=== PATIENT | female | born 1955 | race Caucasian/White ===

== ENCOUNTER 2017-04-17 13:14 | Inpatient (IN) ==
[2017-04-17 13:45] LABS: Bilirubin,Urine Small (Negative); Blood,Urine Moderate (Negative); Clarity,Urine Clear (Clear); Color,Urine Yellow (Yellow); Glucose,Urine (UA) Normal (Normal); Ketones,Urine 15 mg/dL (Negative); Leukocyte Esterase,Urine Moderate (Negative); Nitrite,Urine Negative (Negative); Protein,Urine 30 mg/dL (Neg-Trace); Specific Gravity,Urine > 1.030 (1.010-1.025); Urobilinogen,Urine Normal (Normal)
[2017-04-17 13:47] LABS: Bacteria,Urine None Seen per hpf (None-Few); Hyaline Casts,Urine None Seen per lpf (None-Few); Squamous Epithelial Cell,Urine Many per lpf (None-Few); WBC,Urine 30-50 per hpf (0-3)
[2017-04-17 15:05] LABS: Basophils % 0.3 %; Eosinophils # 0.3 K/mcL (0.0-0.6); Eosinophils % 2.1 %; Hematocrit 41.7 % (35.3-44.9); Hemoglobin 13.1 g/dL (11.5-15.4); Immature Granulocytes % 0.4 % (0-4); Lymphocytes # 1.8 K/mcL (0.6-4.6); Lymphocytes % 14.4 %; Mean Corpuscular HGB Conc 31.4 g/dL (31.6-35.5); Mean Corpuscular Hemoglobin 27.6 pg (28.0-33.3); Mean Platelet Volume 10.8 fL (9.4-12.4); Monocytes # 0.6 K/mcL (0.0-1.3); Monocytes % 4.4 %; Neutrophils # 9.8 K/mcL (1.6-8.9); Platelet Count 251 K/mcL (140-400); Red Blood Count 4.74 M/mcL (3.82-4.97); Red Cell Distribution Width 13.1 % (11.5-14.5); Segmented Neutrophils % 78.4 %
[2017-04-17 15:16] LABS: Albumin 4.3 g/dL (3.5-5.7); Albumin/Globulin Ratio 1.3 (1.1-2.2); Bilirubin,Direct 0.1 mg/dL (0.0-0.2); Bilirubin,Indirect 0.5 mg/dL (0.0-1.2); Bilirubin,Total 0.6 mg/dL (0.3-1.0); Calcium 9.4 mg/dL (8.6-10.3); Globulin 3.2 g/dL (2.4-3.5); Potassium 3.8 mEq/L (3.5-5.1); Total Protein 7.5 g/dL (6.4-8.9)
--- NOTE | 2017-04-17 16:28 | Emergency Department Note ---
Disposition Clinical Impression: Nephrolithiasis UTI (urinary tract infection) Qualifiers: Urinary tract infection type: site unspecified Hematuria presence: with hematuria Qualified Code(s): N39.0 - Urinary tract infection, site not specified ; R31.9 - Hematuria, unspecified; R31.9 - Hematuria, unspecified Disposition: Admitted As Inpatient Condition: Good Forms: ED Satisfaction Letter, Work/School Release General Adult HPI - General Chief complaint: ED Abdominal Pain Stated complaint: Flank Pain/Vomiting/No Voiding Time Seen by Provider: 04/17/17 15:11 Source: patient Limitations: no limitations Nursing Notes Reviewed: Yes Vital Signs Reviewed: Yes - History of Present Illness HPI Narrative: Patient with a history of kidney stones presents today for evaluation of left flank pain. Patient's flank pain started yesterday. Progressive in nature. No aggravating or alleviating factors. No radiation. Patient states feels similar to his previous kidney stones. Took at home Flomax which was previously prescribed for kidney stones. Subjective fever and chills with decreased urination and decreased by mouth. Pain Scale: 9 - Related Data Home Medications Medication Instructions Recorded Confirmed Fluticasone/Salmeterol [Advair 1 each IH BID 03/27/15 03/27/15 500-50 Diskus] Ipratropium/Albuterol Neb [Duoneb] 3 ml IH Q6HR PRN 03/27/15 03/27/15 Ipratropium/Albuterol Sulfate 4 gm IH Q6H PRN 03/27/15 03/27/15 [Combivent Respimat Inhal [place]] Montelukast [Singulair] 10 mg PO DAILY 03/27/15 03/27/15 Pantoprazole Sodium [Protonix] 40 mg PO DAILY 03/27/15 03/27/15 Advair 250-50 Diskus 01/30/17 Aleve 01/30/17 Combivent Respimat Inhal [place] 01/30/17 Previous Rx's Medication Instructions Recorded Cyclobenzaprine [Flexeril] 10 mg PO TID PRN #30 tablet 01/30/17 predniSONE [PredniSONE] 40 mg PO DAILY #10 tablet 01/30/17 Promethazine/Dextromethorphan 5 ml PO HS #60 ml 03/10/17 [Promethazine-Dm Syrup] predniSONE [PredniSONE] 20 mg PO DAILY #13 tablet 03/10/17 Allergies Allergy/AdvReac Type Severity Reaction Status Date / Time levofloxacin [From Levaquin] Allergy Rash Verified 12/11/14 18:46 Hydromorphone [From Dilaudid] AdvReac Itching Verified 01/30/17 18:36 Review of Systems: CONSTITUTIONAL: Subjective fever and chills HEENT: Eyes: No visual changes. Ears, Nose, Throat: No hearing loss, difficulty talking or unable to swallow. SKIN: No rash or itching. CARDIOVASCULAR: No chest pain, chest pressure or chest discomfort. No palpitations or edema. RESPIRATORY: No shortness of breath, cough or sputum. GASTROINTESTINAL: Mild nausea but no vomiting; left-sided flank pain GENITOURINARY: No burning on urination or hematuria. NEUROLOGICAL: No headache, dizziness, syncope, paralysis, ataxia, numbness or tingling in the extremities. No change in bowel or bladder control. MUSCULOSKELETAL: No muscle pain, back pain, joint pain or stiffness. Past Medical History - Past Medical History Medical history: Reports: asthma, kidney stones Psychiatric history: Reports: no psych history - Social History Smoking Status: Never smoker Smokeless Tobacco Status: No Alcohol use: Reports: none Drug use: Reports: none Physical Exam General: Well appearing, nontoxic, no acute distress Head: Normocephalic Atraumatic Eyes: PERRL, EOMI ENT: Airway patent, no stridor Neck: supple, no meningismus Chest: Lungs clear to auscultation bilateral Cardiac: Regular rate and rhythm, no murmurs, rubs or gallops Abdomen: soft, nontender, nondistended; no guarding, rebound, or tenderness to percussion; left CVA tenderness Musculoskeletal: Calves symmetric, nontender, no palpable cord Skin: No rash, normal skin tone Neuro: Alert and Oriented to person, place, and time; No focal deficit, CN 2-12 symmetric and intact - General Limitations: no limitations General appearance: alert Course - Reevaluation(s) Reevaluation #1: Patient with 6.4 mm kidney stone 3-4 cm from the distal UVJ junction. Elevated white count. Urine with leuk esterase and WBCs. Will discuss with urology. Likely admission for infected nephrolithiasis - Consultations Consultation #1: Discussed with urology, Dr. Mendez, patient to receive antibiotics and admission for further evaluation. Will consult. Consultation #2: Discussed with hospitalist. Patient accepted for admission. Vital Signs Temperature 98.0 F 04/17/17 13:19 Pulse Rate 97 04/17/17 13:19 Respiratory Rate 18 04/17/17 13:19 Blood Pressure 128/83 04/17/17 13:19 O2 Sat by Pulse Oximetry 96 04/17/17 13:19 Temperature 98.0 F 04/17/17 13:19 Pulse Rate 97 04/17/17 13:19 Respiratory Rate 18 04/17/17 13:19 Blood Pressure 128/83 04/17/17 13:19 O2 Sat by Pulse Oximetry 96 04/17/17 13:19 Oxygen Delivery Oxygen Delivery Room Air Medical Decision Making - Lab Data Result diagrams: 04/17/17 14:15 04/17/17 14:15 Lab Results 04/17/17 04/17/17 04/17/17 Range/Units 13:29 14:15 14:15 WBC 12.5 H (4.3-11.1) K/mcL RBC 4.74 (3.82-4.97) M/mcL Hgb 13.1 (11.5-15.4) g/dL Hct 41.7 (35.3-44.9) % MCV 88.0 (83.0-100.0) fL MCH 27.6 L (28.0-33.3) pg MCHC 31.4 L (31.6-35.5) g/dL RDW 13.1 (11.5-14.5) % Plt Count 251 (140-400) K/mcL MPV 10.8 (9.4-12.4) fL Immature Gran % 0.4 (0-4) % Seg Neutrophils % 78.4 % Lymphocytes % 14.4 % Monocytes % 4.4 % Eosinophils % 2.1 % Basophils % 0.3 % Neutrophils # 9.8 H (1.6-8.9) K/mcL Lymphocytes # 1.8 (0.6-4.6) K/mcL Monocytes # 0.6 (0.0-1.3) K/mcL Eosinophils # 0.3 (0.0-0.6) K/mcL Basophils # 0.0 (0.0-0.2) K/mcL Sodium 137 (136-145) mEq/L Potassium 3.8 (3.5-5.1) mEq/L Chloride 105 (98-107) mEq/L Carbon Dioxide 25 (23-29) mEq/L BUN 18 (6-20) mg/dL Creatinine 1.39 H (0.60-1.20) mg/dL Est GFR ( Amer) 47 L (> 60) Est GFR (Non-Af Amer) 39 L (> 60) BUN/Creatinine Ratio 13 (6-26) Glucose 94 (70-105) mg/dL Calculated Osmolality 286 (280-300) Calcium 9.4 (8.6-10.3) mg/dL Total Bilirubin 0.6 (0.3-1.0) mg/dL Direct Bilirubin 0.1 (0.0-0.2) mg/dL Indirect Bilirubin 0.5 (0.0-1.2) mg/dL AST 20 (13-39) Units/L ALT 20 (7-52) Units/L Alkaline Phosphatase 125 H (34-104) Units/L Serum Total Protein 7.5 (6.4-8.9) g/dL Albumin 4.3 (3.5-5.7) g/dL Globulin 3.2 (2.4-3.5) g/dL Albumin/Globulin Ratio 1.3 (1.1-2.2) Lipase 12 (11-82) Units/L Urine Color Yellow (Yellow) Urine Clarity Clear (Clear) Urine pH 6.0 (5.0-8.0) pH Units Ur Specific [place] > 1.030 H (1.010-1.025) Urine Protein 30 H (Neg-Trace) mg/dL Urine Glucose (UA) Normal (Normal) mg/dL Urine Ketones 15 H (Negative) mg/dL Urine Blood Moderate H (Negative) Urine Nitrite Negative (Negative) Urine Bilirubin Small H (Negative) Urine Urobilinogen Normal (Normal) mg/dL Ur Leukocyte Esterase Moderate H (Negative) Urine Microscopic RBC 5-15 H (0-3) per hpf Urine Microscopic WBC 30-50 H (0-3) per hpf Ur Squamous Epith Cells Many H (None-Few) per lpf Urine Bacteria None Seen (None-Few) per hpf Hyaline Casts None Seen (None-Few) per lpf Ur Culture Indicated? NO. (NO)
[2017-04-17] MEDS ORDERED: cefTRIAXone 1,000 MG in Water for inj. (sterile) 10 ML IVP ONE (17:15)
[2017-04-17] MEDS ORDERED: 0.9 % Sodium Chloride 1,000 ML IVC ONE (17:15)
--- NOTE | 2017-04-17 17:17 | Emergency Department Note ---
START Narrative - START START: I examined this patient and my medical decision-making was reviewed with the Resident Physician. I agree with the documented findings, disposition and treatment plan as described except to the extent set forth below. 61 yo F here for left flank pain. CT reveals large stone on left 6mm with infected urine and wbc count elevation elevated creat admit and consult to urology
[2017-04-17] MEDS ORDERED: *HR* FentaNYL (PF) 100 MCG/2 ML VIAL IVP ONE (17:20)
[2017-04-17] MEDS ORDERED: *HR* OxyCODONE Immed Rel 5 MG TABLET PO ONE ×2 (17:20→18:34)
[2017-04-17] MEDS ORDERED: Ondansetron 4 MG/2 ML VIAL IVP ONE (17:43)
[2017-04-17] MEDS ORDERED: Ondansetron 4 MG/2 ML VIAL ONE (17:45)
[2017-04-17] MEDS ORDERED: *HR* Nalbuphine 20 MG/ML AMPUL IVP ONE (18:42)
[2017-04-17] MEDS ORDERED: 0.9 % Sodium Chloride 1,000 ML ONE (19:27)
[2017-04-17] MEDS: *HR* Promethazine 25 MG/ML VIAL IVP PRN (21:41)
[2017-04-17] MEDS ORDERED: Naloxone 0.4 MG/ML INJ IVP PRN (22:56)
[2017-04-17] MEDS ORDERED: *HR* HYDROcodone/Acet 5/325 mg TABLET PO PRN (22:56)
[2017-04-17] MEDS ORDERED: NON-FORMULARY MEDICATION 1 EACH EACH (Ipratropium/Albuterol Sulfate [Combivent Respimat In IH PRN (23:00)
[2017-04-17] MEDS ORDERED: Ipratropium/Albuterol Neb 3 ML IH PRN (23:00)
--- NOTE | 2017-04-17 23:06 | Internal Med History&Physical ---
Date of Encounter: 04/17/17 Time of Encounter: 22:00 Assessment and Plan (1) Asthma Current visit: Yes Status: Acute Stable, no wheezing now. Cont home medications. Qualifiers: Asthma severity: mild Asthma persistence: intermittent Asthma complication type: uncomplicated Qualified Code(s): J45.20 - Mild intermittent asthma, uncomplicated (2) DVT prophylaxis Current visit: Yes Status: Acute SCD at this point. May start AC after urology procedure. (3) Nephrolithiasis Current visit: Yes Status: Acute CT abd shows ureter stone with signs of obstruction. - NPO, IVF - Pain control - Urology consult - Abx for UTI (4) UTI (urinary tract infection) Current visit: Yes Status: Acute Will cont rocephin IV. F/U urine culture. Qualifiers: Urinary tract infection type: site unspecified Hematuria presence: without hematuria Qualified Code(s): N39.0 - Urinary tract infection, site not specified Internal Medicine - H&P: HPI Chief complaint: Left flank pain Admitted From: Home Plans for Post Hospital Care: Home History of present illness: Ms. Sih is a 61 year old female with Hx of kidney stone and asthma present to ER for left flank pain, which started from yesterday 9am. Pt has subjective fever and chills. She also has nausea and vomited 4 times today. Vomitings are clear liquids. Pt denies dysuria, burning or other urinating symptoms. In ER, CT abd shows left ureter stone 6.5mm with hydronephrosis. UA shows UTI. Pt was admitted for further management. Urology consult was informed by ER. Past Med Surg Social Fam HX - Past Medical History Medical history: asthma, kidney stones Psychiatric history: no psych history - Social History Smoking Status: Never smoker Smokeless Tobacco Status: No Alcohol use: none Drug use: none - Family History Mother History Unknown: Yes Internal Medicine - H&P: Meds Fluticasone/Salmeterol [Advair 500-50 Diskus] 1 each IH BID 03/27/15 [History] Ipratropium/Albuterol Neb [Duoneb] 3 ml IH Q6HR PRN 03/27/15 [History] Ipratropium/Albuterol Sulfate [Combivent Respimat Inhal [place]] 2 puff IH Q6H PRN 03/27/15 [History] Montelukast [Singulair] 10 mg PO DAILY 03/27/15 [History] Pantoprazole Sodium [Protonix] 40 mg PO DAILY 03/27/15 [History] 3 Allergy/AdvReac Type Severity Reaction Status Date / Time levofloxacin [From Levaquin] Allergy Rash Verified 12/11/14 18:46 Hydromorphone [From Dilaudid] AdvReac Itching Verified 01/30/17 18:36 All Systems PM: A 10-system review of systems was performed and is negative for pertinent findings except as documented above in the HPI. - Constitutional Vitals: Temp Pulse Resp BP Pulse Ox 98.7 F 80 15 126/83 96 04/17/17 19:29 04/17/17 19:29 04/17/17 19:29 04/17/17 19:29 04/17/17 19:29 General appearance: Present: mild distress, A&O X 3, answers questions appropriately - Head Head exam: Present: atraumatic, normocephalic - Eye Eye exam: Present: PERRL, conjuntiva pink, sclera anicteric Pupils: Present: PERRL - Neck Neck exam general surgery: Present: supple, trachea midline. Absent: lymphadenopathy - Respiratory Respiratory exam: Present: CTAB. Absent: accessory muscle use, rales, rhonchi, wheezes - Cardiovascular Cardiovascular exam: Present: RRR, +S1, +S2. Absent: diastolic murmur, gallop, rubs, systolic murmur - GI/Abdominal GI/Abdominal exam: Present: normal bowel sounds, soft, no peritoneal signs. Absent: distended, tenderness Additional comments: CVAT positive on left side - Extremities Exam Extremities exam: Present: warm, radial pulses palpable and symmetrical. Absent : calf tenderness, cyanotic, pedal edema - Neurological Exam Neurological exam: Present: CN II-XII intact, oriented X3, no focal deficits. Absent: pronater drift, facial droop, speech deficit - Skin Skin exam: Present: dry, intact Internal Med - H&P Results - Labs CBC & Chem 7: 04/17/17 14:15 04/17/17 14:15
[2017-04-18] MEDS: 0.9 % Sodium Chloride 1,000 ML IVC SCH ×2 (00:30→13:47)
[2017-04-18] MEDS ORDERED: Ondansetron 4 MG/2 ML VIAL IVP PRN (02:28)
[2017-04-18] MEDS ORDERED: *HR* HYDROcodone/Acet 5/325 mg TABLET PO PRN (04:12)
[2017-04-18] MEDS ORDERED: *HR* HYDROcodone/Acet 5/325 mg TABLET PO ONE (04:12)
[2017-04-18 05:44] LABS: Basophils % 0.2 %; Eosinophils # 0.2 K/mcL (0.0-0.6); Eosinophils % 1.7 %; Hematocrit 35.8 % (35.3-44.9); Immature Granulocytes % 0.3 % (0-4); Lymphocytes # 1.3 K/mcL (0.6-4.6); Lymphocytes % 10.1 %; Mean Corpuscular HGB Conc 31.6 g/dL (31.6-35.5); Mean Corpuscular Volume 88.6 fL (83.0-100.0); Mean Platelet Volume 10.5 fL (9.4-12.4); Monocytes # 0.6 K/mcL (0.0-1.3); Monocytes % 4.9 %; Neutrophils # 10.4 K/mcL (1.6-8.9); Platelet Count 202 K/mcL (140-400); Red Blood Count 4.04 M/mcL (3.82-4.97); Red Cell Distribution Width 13.1 % (11.5-14.5); Segmented Neutrophils % 82.8 %
[2017-04-18] MEDS ORDERED: *HR* Heparin 5,000 UNIT/ML VIAL SQ SCH (06:00)
[2017-04-18 06:03] LABS: Hemoglobin 11.3 g/dL (11.5-15.4)
[2017-04-18 06:13] LABS: Calcium 8.4 mg/dL (8.6-10.3); Potassium 3.9 mEq/L (3.5-5.1)
[2017-04-18] MEDS ORDERED: *HR* HYDROcodone/Acet 10/325 mg TABLET PO PRN ×2 (06:47→13:53)
--- NOTE | 2017-04-18 07:38 | Urology - Consult Note ---
Date of Encounter: 04/18/17 Time of Encounter: 07:36 - Assessment and Plan (1) Nephrolithiasis Current Visit: Yes Status: Acute Assessment and plan: 61 year old woman with a distal left ureteral stone. Her pain is not well controlled. She wishes to have the stone removed. She has a slight elevation in her creatinine. I recommend proceeding with a left ureteroscopy, laser lithotripsy, and stent placement. She was informed of the risks of the procedure including but not limited to bleeding, infection, injury to other structures, need for further procedures, stent irritation, incomplete fragmentation, ureteral perforation, need for nephrostomy tube, need for open repair, risks unforeseen, and the risk of anesthesia. She is willing to proceed. Urology CN:HPI Consult date: 04/18/17 Reason for consult Urology: Other (Left ureteral stone) Requesting physician: Duke Trammell History of present illness: 61-year-old woman presents with a 2 day history of left flank pain. She reports having a known history of nephrolithiasis. The pain is located in the left flank and radiates to the left groin. It is sharp. She says the pain is not well controlled currently. She has had some nausea associated with it. The pain was severe, but it is somewhat improved now. Previously she had a stone which was treated a number of years ago. Past Med Surg Social Fam HX - Past Medical History Medical history: asthma, kidney stones Psychiatric history: no psych history - Social History Smoking Status: Never smoker Smokeless Tobacco Status: No Alcohol use: none Drug use: none - Family History Mother History Unknown: Yes Medications and Allergies Fluticasone/Salmeterol [Advair 500-50 Diskus] 1 each IH BID 03/27/15 [History] Ipratropium/Albuterol Neb [Duoneb] 3 ml IH Q6HR PRN 03/27/15 [History] Ipratropium/Albuterol Sulfate [Combivent Respimat Inhal [place]] 2 puff IH Q6H PRN 03/27/15 [History] Montelukast [Singulair] 10 mg PO DAILY 03/27/15 [History] Pantoprazole Sodium [Protonix] 40 mg PO DAILY 03/27/15 [History] 3 Allergy/AdvReac Type Severity Reaction Status Date / Time levofloxacin [From Levaquin] Allergy Rash Verified 12/11/14 18:46 Hydromorphone [From Dilaudid] AdvReac Itching Verified 01/30/17 18:36 Review of Systems - Constitutional no chills, no fever(s) - EENT Nose, mouth and throat: no dizziness - Cardiovascular no chest pain - Respiratory no dyspnea - Gastrointestinal no nausea, no vomiting - Genitourinary Genitourinary: flank pain, no hematuria - Musculoskeletal no back pain - Integumentary no erythema, no rash - Neurological no weakness - Psychiatric no suicidal ideation - Hematologic/Lymphatic no easy bleeding - Allergic/Immunologic no wheezing Exam Initial Vital Signs Temp Pulse Resp BP Pulse Ox 98.0 F 97 18 128/83 96 04/17/17 13:19 04/17/17 13:19 04/17/17 13:19 04/17/17 13:19 04/17/17 13:19 - General physical appearance Present: well developed, well nourished, no distress - Eyes Absent: icteric - ENT Present: normal nares - Neck Present: trachea midline - Respiratory Present: normal respiratory effort - Abdomen Abdomen: Present: soft - Integumentary Present: no rash - Neurologic Present: normal coordination - Musculoskeletal Present: other (No edema) Urology Results - Labs 04/18/17 05:04 04/18/17 05:04 Abnormal lab results WBC 12.6 K/mcL (4.3-11.1) H 04/18/17 05:04 Hgb 11.3 g/dL (11.5-15.4) L D 04/18/17 05:04 Neutrophils # 10.4 K/mcL (1.6-8.9) H 04/18/17 05:04 Chloride 109 mEq/L (98-107) H 04/18/17 05:04 Creatinine 1.40 mg/dL (0.60-1.20) H 04/18/17 05:04 Est GFR ( Amer) 47 (> 60) L 04/18/17 05:04 Est GFR (Non-Af Amer) 38 (> 60) L 04/18/17 05:04 POC Glucose 91 (58-89) H 04/18/17 05:33 Calcium 8.4 mg/dL (8.6-10.3) L 04/18/17 05:04 Alkaline Phosphatase 125 Units/L (34-104) H 04/17/17 14:15 Ur Specific [place] > 1.030 (1.010-1.025) H 04/17/17 13:29 Urine Protein 30 mg/dL (Neg-Trace) H 04/17/17 13:29 Urine Ketones 15 mg/dL (Negative) H 04/17/17 13:29 Urine Blood Moderate (Negative) H 04/17/17 13:29 Urine Bilirubin Small (Negative) H 04/17/17 13:29 Ur Leukocyte Esterase Moderate (Negative) H 04/17/17 13:29 Urine Microscopic RBC 5-15 per hpf (0-3) H 04/17/17 13:29 Urine Microscopic WBC 30-50 per hpf (0-3) H 04/17/17 13:29 Ur Squamous Epith Cells Many per lpf (None-Few) H 04/17/17 13:29 Diabetes panel 04/18/17 Range/Units 05:04 Sodium 138 (136-145) mEq/L Potassium 3.9 (3.5-5.1) mEq/L Chloride 109 H (98-107) mEq/L Carbon Dioxide 24 (23-29) mEq/L BUN 14 (6-20) mg/dL Creatinine 1.40 H (0.60-1.20) mg/dL Glucose 101 (70-105) mg/dL Calcium 8.4 L (8.6-10.3) mg/dL Calcium panel 04/18/17 Range/Units 05:04 Calcium 8.4 L (8.6-10.3) mg/dL Pituitary panel 04/18/17 Range/Units 05:04 Sodium 138 (136-145) mEq/L Potassium 3.9 (3.5-5.1) mEq/L Chloride 109 H (98-107) mEq/L Carbon Dioxide 24 (23-29) mEq/L BUN 14 (6-20) mg/dL Creatinine 1.40 H (0.60-1.20) mg/dL Glucose 101 (70-105) mg/dL Calcium 8.4 L (8.6-10.3) mg/dL Adrenal panel 04/18/17 Range/Units 05:04 Sodium 138 (136-145) mEq/L Potassium 3.9 (3.5-5.1) mEq/L Chloride 109 H (98-107) mEq/L Carbon Dioxide 24 (23-29) mEq/L BUN 14 (6-20) mg/dL Creatinine 1.40 H (0.60-1.20) mg/dL Glucose 101 (70-105) mg/dL Calcium 8.4 L (8.6-10.3) mg/dL All other labs normal. - Imaging CT scan - abdomen: report reviewed, image reviewed CT scan - pelvis: report reviewed, image reviewed Consult Discharge Plan - Plan Referrals: Minh Medina Jr, MD [Primary Care Provider] -
--- NOTE | 2017-04-18 07:55 | Internal Med Progress Note ---
Date of Encounter: 04/18/17 Time of Encounter: 07:23 - Assessment and plan (1) GAUDENCIO (acute kidney injury) Current Visit: Yes Status: Acute Assessment and plan: Acute kidney injury likely due to dehydration with continued IV hydration and repeat in a.m. (2) Obesity Current Visit: Yes Status: Chronic Assessment and plan: Chronic Qualifiers: Obesity type: due to excess calories Obesity classification: adult class 2 (BMI 35 - 39.9) Serious obesity comorbidity presence: without serious comorbidity Body mass index: unspecified BMI Qualified Code(s): E66.09 - Other obesity due to excess calories (3) Leukocytosis Current Visit: Yes Status: Acute Assessment and plan: Likely reactive patient also has UTI was sent for cultures Qualifiers: Leukocytosis type: unspecified Qualified Code(s): D72.829 - Elevated white blood cell count, unspecified (4) UTI (urinary tract infection) Current Visit: Yes Status: Acute Assessment and plan: Acute cystitis without hematuria continue Rocephin and sent urine culture Qualifiers: Urinary tract infection type: acute cystitis Hematuria presence: without hematuria Qualified Code(s): N30.00 - Acute cystitis without hematuria (5) Nephrolithiasis Current Visit: Yes Status: Acute Assessment and plan: Neurologic consult test patient for surgery today (6) Asthma Current Visit: Yes Status: Acute Qualifiers: Asthma severity: mild Asthma persistence: intermittent Asthma complication type: uncomplicated Qualified Code(s): J45.20 - Mild intermittent asthma, uncomplicated - Subjective Interval history: Patient with history of obesity, asthma, admitted with kidney stone and UTI seen by urology Dr. Mendez and plan is for surgery today patient clinically is better less flank pain no nausea vomiting - Constitutional Vitals: Temp Pulse Resp BP Pulse Ox 98.9 F 88 15 119/76 92 04/18/17 03:41 04/18/17 03:41 04/18/17 03:41 04/18/17 03:41 04/18/17 03:41 General appearance: Present: mild distress, A&O X 3, answers questions appropriately - Eye Eye exam: Present: PERRL, conjuntiva pink, sclera anicteric Pupils: Present: PERRL - Neck Neck exam general surgery: Present: supple, trachea midline. Absent: lymphadenopathy - Respiratory Respiratory exam: Present: CTAB. Absent: accessory muscle use, rales, rhonchi, wheezes - Cardiovascular Cardiovascular exam: Present: RRR, +S1, +S2. Absent: diastolic murmur, gallop, rubs, systolic murmur - GI/Abdominal GI/Abdominal exam: Present: soft, tenderness Internal Medicine: Result - Labs CBC & Chem 7: 04/18/17 05:04 04/18/17 05:04 Labs: Short CBC 04/18/17 Range/Units 05:04 WBC 12.6 H (4.3-11.1) K/mcL Hgb 11.3 L D (11.5-15.4) g/dL Hct 35.8 (35.3-44.9) % Plt Count 202 (140-400) K/mcL Neutrophils # 10.4 H (1.6-8.9) K/mcL BMP 04/18/17 05:04 Sodium 138 Potassium 3.9 Chloride 109 H Carbon Dioxide 24 BUN 14 Creatinine 1.40 H Glucose 101 Calcium 8.4 L Consult Discharge Plan - Plan Referrals: Minh Medina Jr, MD [Primary Care Provider] -
[2017-04-18] MEDS: *HR* Promethazine 25 MG/ML VIAL IVP PRN (08:48)
[2017-04-18] MEDS ORDERED: cefTRIAXone 1,000 MG in Water for inj. (sterile) 20 ML 10 ML IVPB SCH (09:00)
[2017-04-18] MEDS ORDERED: Ketorolac 15 MG/ML VIAL IVP PRN ×2 (09:03→13:53)
[2017-04-18] MEDS ORDERED: Budesonide/Formoterol 160/4.5 MDI IH SCH ×2 (10:00→22:00)
--- NOTE | 2017-04-18 10:54 | Anesthesia Evaluation PreOp ---
Date of Encounter: 04/18/17 Time of Encounter: 11:00 - Past History Planned Operation: Left USE with Laser Cardiac History: Denies any Significant Hx Pulmonary History: Asthma AWARD CLERK History: Denies Any Significant HX Other Medical History: Other (Obese) Anesthesia History: No Prior Anesthetic Complications : No Alcohol Use: none Drug use: none Medications and Allergies Fluticasone/Salmeterol [Advair 500-50 Diskus] 1 each IH BID 03/27/15 [History] Ipratropium/Albuterol Neb [Duoneb] 3 ml IH Q6HR PRN 03/27/15 [History] Ipratropium/Albuterol Sulfate [Combivent Respimat Inhal [place]] 2 puff IH Q6H PRN 03/27/15 [History] Montelukast [Singulair] 10 mg PO DAILY 03/27/15 [History] Pantoprazole Sodium [Protonix] 40 mg PO DAILY 03/27/15 [History] 3 Allergy/AdvReac Type Severity Reaction Status Date / Time levofloxacin [From Levaquin] Allergy Rash Verified 12/11/14 18:46 Hydromorphone [From Dilaudid] AdvReac Itching Verified 01/30/17 18:36 - Meds/Allergy Pre-op Review Medications Reviewed: Yes Allergies Reviewed: Yes Beta Blockers on Current Med List: No Anesthesia Results - Labs 04/18/17 05:04 04/18/17 05:04 Laboratory Tests 04/18/17 04/18/17 05:04 05:04 Hgb 11.3 L D Hct 35.8 Plt Count 202 Sodium 138 Potassium 3.9 BUN 14 Creatinine 1.40 H Anesthesia Exam O2 Sat Height 1.63 m Weight 95 kg Weight 95.254 kg O2 Sat by Pulse Oximetry 93 O2 Sat by Pulse Oximetry 93 O2 Sat by Pulse Oximetry 93 O2 Sat by Pulse Oximetry 93 O2 Sat by Pulse Oximetry 92 O2 Sat by Pulse Oximetry 92 O2 Sat by Pulse Oximetry 96 O2 Sat by Pulse Oximetry 96 O2 Sat by Pulse Oximetry 96 O2 Sat by Pulse Oximetry 96 Vital Signs Temp Pulse Resp BP Pulse Ox 98.0 F 97 18 128/83 96 04/17/17 13:19 04/17/17 13:19 04/17/17 13:19 04/17/17 13:19 04/17/17 13:19 Height: 5'4 Weight: 209 lbs NPO (# of Hours): [place] Pain Scale: 0 - HEENT Pupil (Motor): Pupils equal, EOMI Mallampati: III Oral Opening: Greater than 3 - AWARD CLERK LOC: Oriented AWARD CLERK Motor: Normal RUE, Normal LUE, Normal RLE, Normal LLE, Normal Face AWARD CLERK Sensory: Normal: RUE, LUE, RLE, LLE, Face - Cardiac Rhythm: Regular Murmur: None JVD: No Carotid Bruit: No - Pulmonary Breath Sounds: bilateral Clear Respiratory Effort: Symmetrical Anesthesia Assess/Plan ASA Score: 2 Modified [place] Scale for Level of Consciousness: Cooperative, oriented, and tranquil Anesthetic Plan: General Monitoring Plan: Standard Monitors Recovery Plan: PACU (Discussed GA, agrees to proceed)
[2017-04-18] MEDS ORDERED: Albuterol 2.5 MG/3 ML NEBULIZER IH ONE (11:24)
[2017-04-18] MEDS ORDERED: Acetaminophen IV 1,000 MG/100 ML INFUS..BTL ONE (11:51)
[2017-04-18] MEDS ORDERED: Ondansetron 4 MG/2 ML VIAL ONE ×2 (11:54→12:37)
[2017-04-18] MEDS ORDERED: Dexamethasone 4 MG/ML VIAL ONE ×2 (11:54→12:37)
[2017-04-18] MEDS ORDERED: Lidocaine -MPF 2% 2 ML VIAL ONE (11:54)
[2017-04-18] MEDS ORDERED: *HR* Propofol 200 MG/20 ML VIAL IVP ONE (11:55)
[2017-04-18] MEDS ORDERED: *HR* FentaNYL (PF) 100 MCG/2 ML VIAL ONE (11:56)
--- NOTE | 2017-04-18 11:57 | Operative Note ---
Date of procedure: 04/18/17 Pre-op diagnosis: Left ureteral stone Post-op diagnosis: same Procedure: Left ureteroscopy, laser lithotripsy, and stent placement. Implants: 6 [place] x 24 cm JJ stent. Complications: None. Anesthesia: MARY ELLEN Surgeon: Ang Mendez Was there an assistant chief engineer present: No Estimated blood loss (cc): 1 Specimen: left ureteral stone Condition: stable Disposition: PACU Procedure in Detail: Indications: Bettye is a 61-year-old woman who has a history of left flank pain. A CT scan showed a 6 mm distal left ureteral stone. She has tried to pass the stone on her own but has not been able to do so. She is still having flank pain. She wishes to have the stone removed. Therefore, she elected undergo a left ureteroscopy, laser lithotripsy, basket stone extraction, and left ureteral stent placement. She is aware of the risks of the procedure including but not limited to bleeding, infection, injury to other structures, need for further procedures, need for stent, stent irritation, need for nephrostomy tube, incomplete treatment, need for open repair, risks unforeseen, and the risk of anesthesia. She is on proceed. Procedure: After informed consent was obtained the patient was brought back to the operating room and placed in supine position. A time out was performed. General anesthesia was administered and an LMA was placed. She was then placed in the lithotomy position. She was prepped and draped in the usual sterile fashion. Cystoscopy was performed. The anterior urethra was normal. There was no evidence of bladder tumors. The ureteral orifices were in the normal orthotopic position. The zip wire was placed up the left ureter and was brought into the kidney under fluoroscopic guidance. The ureter was dilated with the 8/10 [place] ureteral dilator. I then advanced the semirigid ureteroscope into the ureter. The stone was fragmented using the 365 micron laser fiber. The stone fragments were basket extracted. A 6 [place] by 24cm JJ stent was then placed with good curl seen in the kidney and the bladder. The dangle string was left intact. The string was tucked into the vagina and will be used to remove the stent at a later date. The patient was then awakened from general anesthesia and brought to recovery room in good condition. All sponge, needle, and instrument counts were correct.
[2017-04-18] MEDS ORDERED: *HR* OxyCODONE Immed Rel 5 MG TABLET PO PRN ×2 (12:45→13:53)
[2017-04-18] MEDS ORDERED: 0.9 % Sodium Chloride 1,000 ML IVC SCH ×2 (13:53→16:45)
[2017-04-18] MEDS ORDERED: Ipratropium/Albuterol Neb 3 ML IH PRN (13:53)
[2017-04-18] MEDS ORDERED: Naloxone 0.4 MG/ML INJ IVP PRN (13:53)
[2017-04-18] MEDS ORDERED: *HR* Promethazine 25 MG/ML VIAL IVP PRN (13:53)
[2017-04-18 15:01] VITALS: BP 110/69
--- NOTE | 2017-04-18 17:56 | Discharge Summary ---
Date of Encounter: 04/18/17 Time of Encounter: 17:54 - Discharge Diagnosis (1) GAUDENCIO (acute kidney injury) Priority: Secondary Status: Acute Comments: s/p lithotripsy and stent plcement (2) Obesity Priority: Secondary Status: Chronic Qualifiers: Obesity type: due to excess calories Obesity classification: adult class 2 (BMI 35 - 39.9) Serious obesity comorbidity presence: without serious comorbidity Body mass index: unspecified BMI Qualified Code(s): E66.09 - Other obesity due to excess calories (3) Leukocytosis Priority: Secondary Status: Acute Qualifiers: Leukocytosis type: unspecified Qualified Code(s): D72.829 - Elevated white blood cell count, unspecified (4) UTI (urinary tract infection) Priority: Secondary Status: Acute Comments: will dcv on levaquin po Qualifiers: Urinary tract infection type: acute cystitis Hematuria presence: without hematuria Qualified Code(s): N30.00 - Acute cystitis without hematuria (5) Nephrolithiasis Priority: Primary Status: Acute (6) Asthma Priority: Secondary Status: Acute Comments: no wheezing Qualifiers: Asthma severity: mild Asthma persistence: intermittent Asthma complication type: uncomplicated Qualified Code(s): J45.20 - Mild intermittent asthma, uncomplicated - Discharge Medications Prescriptions: HYDROcodone/Acet 10/325 mg [[place] 10-325 mg] 1 each PO Q4H PRN 4 Days #20 tablet PRN Reason: Moderate Pain Levofloxacin [Levaquin] 500 mg PO DAILY 7 Days #7 tablet Home Medications: Fluticasone/Salmeterol [Advair 500-50 Diskus] 1 each IH BID 03/27/15 [History] Ipratropium/Albuterol Neb [Duoneb] 3 ml IH Q6HR PRN 03/27/15 [History] Ipratropium/Albuterol Sulfate [Combivent Respimat Inhal [place]] 2 puff IH Q6H PRN 03/27/15 [History] Montelukast [Singulair] 10 mg PO DAILY 03/27/15 [History] Pantoprazole Sodium [Protonix] 40 mg PO DAILY 03/27/15 [History] HYDROcodone/Acet 10/325 mg [[place] 10-325 mg] 1 each PO Q4H PRN 4 Days #20 tablet 04/18/17 [Rx] Levofloxacin [Levaquin] 500 mg PO DAILY 7 Days #7 tablet 04/18/17 [Rx] Allergies/Adverse Reactions: 3 Allergy/AdvReac Type Severity Reaction Status Date / Time levofloxacin [From Levaquin] Allergy Rash Verified 12/11/14 18:46 Hydromorphone [From Dilaudid] AdvReac Itching Verified 01/30/17 18:36 Date of admission: 04/17/17 22:56 Primary care physician: Minh Medina Jr, MD Discharging clinician: Shelby Mckenzie Anticipated date of discharge: 04/18/17 - Patient Status Disposition: Home, Self-Care Condition: Good Overall status at discharge: patient is progressing back to baseline - Discharge Instructions Follow Up With: Ang Mendez MD [Partnered Physician] - - Diet and Activity Activity: other Diet: advance to your usual diet Hospital course: Ms. Shi is a 61 year old female - Time Spent with Patient Total time spent providing and/or coordinating discharge services: - Constitutional Vitals: Temp Pulse Resp BP Pulse Ox 98 F 72 14 110/69 98 04/18/17 14:45 04/18/17 14:45 04/18/17 14:45 04/18/17 14:45 04/18/17 14:45 General appearance: Present: mild distress, A&O X 3, answers questions appropriately - VTE Documentation of Mechanical Device: Intermittent pneumatic compression device
[2017-04-18] MEDS ORDERED: Cefdinir 300 MG CAPSULE PO SCH (21:00)
[2017-04-19] MEDS ORDERED: cefTRIAXone 1,000 MG in Water for inj. (sterile) 20 ML 10 ML IVPB SCH (09:00)
[2017-04-19] MEDS ORDERED: levoFLOXacin 500 MG TABLET PO SCH (09:00)
== END 2017-04-18 18:39 | disposition home or self-care (01) | DRG 669 ==
LOC: EMEROO 13:14 → 3ANU 13:14
PROVIDERS: ADMIT Internal Medicine; ATTEND Internal Medicine